=== PATIENT | female | born 1935 | race Caucasian/White ===

== ENCOUNTER 2018-09-10 12:06 | Emergency (ER) | payer MEDICARE, OTHER ==
[~2018-09-10] VITALS: Ht 149.9 cm; Wt 88.0 kg
[~2018-09-10 12:06] MED LIST: ASPIR 8181 MG PO; ATENOLOL100 MG PO; ATENOLOL50 MG PO; B-12500 MCG PO; CALCIUM600 MG PO; CENTRUM SILVER1 EAC4 PO; CO Q-10 100 MG1 EACH PO; DIOVAN HCT 80-1 EACH PO; DIOVAN80 MG PO; HUMALOG100 UNIT/1 SQ; HUMALOG100 UNITS/; ISOSORBIDE MONO20 MG PO; LANOXIN125 MCG PO; LASIX20 MG PO; LEVEMIR100 UNIT/1 SQ; MECLIZINE HCL12.5 MG PO; METFORMIN HCL1000 MG PO; MULTAQ400 MG PO; NITRO-DUR1 EACH TD; NITROGLYCERIN0.4 MG SL; SIMVASTATIN10 MG PO; SULFAMETHOXAZO1 EAC1 PO; XANAX0.25 MG PO; ZANTAC150 MG PO
[2018-09-10 14:14] LABS: BASOPHILS % 0.3 % (0.0-1.0); EOSINOPHILS # (AUTO) 0.1 (0.0-0.4); EOSINOPHILS % 0.6 % (0.0-6.0); HEMATOCRIT 39.5 % (34.2-44.1); HEMOGLOBIN 12.8 g/dL (12.0-16.0); LYMPHOCYTES # (AUTO) 2.6 (1.0-3.2); MEAN CORPUSCULAR HEMOGLOBIN 32.2 pg (28-32); MEAN CORPUSCULAR HGB CONC 32.4 g/dL (31-35); MEAN CORPUSCULAR VOLUME 99.5 fL (81-99); MONOCYTES % 9.9 % (4.4-11.3); NEUTROPHILS # (AUTO) 6.6 (2.1-6.9); NEUTROPHILS % 63.6 % (38.7-80.0); PLATELET COUNT 248 x10e3/uL (140-360); RED BLOOD COUNT 3.97 x10e6/uL (3.6-5.1); RED CELL DISTRIBUTION WIDTH 15.8 % (11.7-14.4)
[2018-09-10 14:28] LABS: ALBUMIN 3.5 g/dL (3.5-5.0); ALBUMIN/GLOBULIN RATIO 0.8 (0.8-2.0); ANION GAP 16.9 mmol/L (8-16); CALCIUM 9.1 mg/dL (8.4-10.2); CREATININE, SERUM 1.49 mg/dL (0.57-1.11); POTASSIUM 4.9 mmol/L (3.5-5.1)
[2018-09-10 14:58] LABS: BACTERIA,URINE FEW /HPF; BILIRUBIN,URINE NEGATIVE (NEGATIVE); CLARITY,URINE CLEAR (CLEAR); COLOR,URINE YELLOW (YELLOW); EPITHELIAL CELLS,URINE MANY /LPF; KETONES,URINE NEGATIVE (NEGATIVE); LEUKOCYTE ESTERASE ,URINE NEGATIVE (NEGATIVE); NITRITE,URINE NEGATIVE (NEGATIVE); PROTEIN,URINE DIPSTICK NEGATIVE (NEGATIVE); RBC,URINE 0-5 /HPF (0-5); URINE UROBILINOGEN 0.2 mg/dL (0.2 - 1); WBC,URINE (MAN) 0-5 /HPF (0-5)
--- NOTE | 2018-09-10 16:19 | Diagnostic Imaging Report ---
EXAMINATION: CHEST 2 VIEWS INDICATION: ^SEPSIS COMPARISON: None FINDINGS: PA and lateral views TUBES and LINES: Left-sided loop recorder is in place. LUNGS: Lungs are well inflated. There are bibasilar atelectasis. There is no evidence of pneumonia or pulmonary edema. Diffuse calcification of the trachea and bronchus. PLEURA: No pleural effusion or pneumothorax. HEART AND MEDIASTINUM: Cardiac size is moderately enlarged. The aorta is ectatic with atherosclerotic calcifications. BONES AND SOFT TISSUES: No acute osseous lesion. Soft tissues are unremarkable. UPPER ABDOMEN: No free air under the diaphragm. IMPRESSION: Moderate cardiomegaly with bibasilar atelectasis. Signed by: Dr. Navarro Suarez M.D. on 09/10/2018 4:15 PM
--- NOTE | 2018-09-10 16:46 | NUR ---
DR. TEIXEIRA EVALUATING PATIENT. GLUCOSE 57, PATIENT GIVEN O.J X 2
--- NOTE | 2018-09-10 17:11 | NUR ---
Pt glucose checked at this time, Reading 62. Pt stated only drank one of the 2 OJ's given. Pt stated will drink the other and eat once she gets home. Pt is currently AAOx3. NAD noted at the present time. MIKEL Mabry and Dr. Villegas notified.
== END 2018-09-10 17:27 | disposition home or self-care (01) ==
LOC: ER 12:09
DX: R20.2 Paresthesia of skin (principal); R26.2 Difficulty in walking, not elsewhere classified; I10 Essential (primary) hypertension; E11.9 Type 2 diabetes mellitus without complications; I25.10 Atherosclerotic heart disease of native coronary artery without angina pectoris; Z85.828 Personal history of other malignant neoplasm of skin
CPT/HCPCS: 36415; 71046; 80053; 81001; 82948; 85025; 87086; 87400; 93005; 99283

== ENCOUNTER → 2019-11-10 | Outpatient (CLI) | payer MEDICARE | LOC: CARD 13:21 | PROVIDERS: ATTEND Family Medicine Adult Medicine | DX: I87.312 Chronic venous hypertension (idiopathic) with ulcer of left lower extremity (principal); L97.821 Non-pressure chronic ulcer of other part of left lower leg limited to breakdown of skin | CPT/HCPCS: 93922; 93925; 93970 ==

== ENCOUNTER 2019-11-11 10:37 | Outpatient (RCR) | payer MEDICARE ==
[~2019-11-11 10:37] MED LIST changes: +FLUOCINONIDE 0.05% 1 EA/15 GM TUBE ONE; +LIDOCAINE VISC 2% SOLN 15 ML UDC ONE; +LIDOCAINE/PRILOCAINE 2.5-2.5% KIT ONE; +MINERAL OIL/PETROLAT/GLYCERI 2OZ CRM ONE; +MINERAL OIL/PETROLAT/GLYCERI 6OZ BTL ONE
[2019-11-11] MEDS ORDERED: LIDOCAINE/PRILOCAINE 2.5-2.5% KIT ONE (14:47)
== END 2019-11-13 ==
LOC: WCC 10:37
PROVIDERS: ATTEND Family Medicine Adult Medicine
DX: E11.65 Type 2 diabetes mellitus with hyperglycemia (principal); I87.312 Chronic venous hypertension (idiopathic) with ulcer of left lower extremity; I87.311 Chronic venous hypertension (idiopathic) with ulcer of right lower extremity; L97.821 Non-pressure chronic ulcer of other part of left lower leg limited to breakdown of skin; L97.811 Non-pressure chronic ulcer of other part of right lower leg limited to breakdown of skin; R60.0 Localized edema; I87.2 Venous insufficiency (chronic) (peripheral); I79.8 Other disorders of arteries, arterioles and capillaries in diseases classified elsewhere; I10 Essential (primary) hypertension; I48.21 Permanent atrial fibrillation; G47.39 Other sleep apnea; E78.49 Other hyperlipidemia; Z85.828 Personal history of other malignant neoplasm of skin
CPT/HCPCS: 36415; 82948; 87071; 87075; 87205

== ENCOUNTER 2019-12-13 15:43 | Outpatient (RCR) | payer MEDICARE ==
[~2019-12-13 15:43] MED LIST changes: -FLUOCINONIDE 0.05% 1 EA/15 GM TUBE ONE; -LIDOCAINE/PRILOCAINE 2.5-2.5% KIT ONE
[2019-12-13] MEDS ORDERED: MINERAL OIL/PETROLAT/GLYCERI 6OZ BTL ONE (18:07)
== END 2019-12-14 ==
LOC: WCC 15:43
PROVIDERS: ATTEND Family Medicine Adult Medicine
DX: E11.65 Type 2 diabetes mellitus with hyperglycemia (principal); R60.0 Localized edema; I87.312 Chronic venous hypertension (idiopathic) with ulcer of left lower extremity; I87.311 Chronic venous hypertension (idiopathic) with ulcer of right lower extremity; L97.821 Non-pressure chronic ulcer of other part of left lower leg limited to breakdown of skin; L97.811 Non-pressure chronic ulcer of other part of right lower leg limited to breakdown of skin; I87.2 Venous insufficiency (chronic) (peripheral); I79.8 Other disorders of arteries, arterioles and capillaries in diseases classified elsewhere; I10 Essential (primary) hypertension; I48.21 Permanent atrial fibrillation; E78.49 Other hyperlipidemia; G47.39 Other sleep apnea; Z85.828 Personal history of other malignant neoplasm of skin
CPT/HCPCS: 36415; 82948

== ENCOUNTER → 2020-01-13 | Outpatient (RCR) | payer MEDICARE ==
[~2020-01-13] MED LIST changes: -LIDOCAINE VISC 2% SOLN 15 ML UDC ONE
== END ==
LOC: WCC 12-16 15:28
PROVIDERS: ATTEND Family Medicine Adult Medicine
DX: E11.65 Type 2 diabetes mellitus with hyperglycemia (principal); I87.312 Chronic venous hypertension (idiopathic) with ulcer of left lower extremity; I87.311 Chronic venous hypertension (idiopathic) with ulcer of right lower extremity; L97.821 Non-pressure chronic ulcer of other part of left lower leg limited to breakdown of skin; L97.811 Non-pressure chronic ulcer of other part of right lower leg limited to breakdown of skin; R60.0 Localized edema; I87.2 Venous insufficiency (chronic) (peripheral); I79.8 Other disorders of arteries, arterioles and capillaries in diseases classified elsewhere; I10 Essential (primary) hypertension; I48.21 Permanent atrial fibrillation; E78.49 Other hyperlipidemia; G47.39 Other sleep apnea; Z85.828 Personal history of other malignant neoplasm of skin

== ENCOUNTER 2020-01-27 11:04 | Outpatient (RCR) | payer MEDICARE ==
[~2020-01-27 11:04] MED LIST changes: -MINERAL OIL/PETROLAT/GLYCERI 6OZ BTL ONE
[2020-01-27] MEDS ORDERED: MINERAL OIL/PETROLAT/GLYCERI 6OZ BTL ONE (19:22)
== END 2020-02-13 ==
LOC: WCC 11:04
PROVIDERS: ATTEND Family Medicine Adult Medicine
DX: E11.65 Type 2 diabetes mellitus with hyperglycemia (principal); I87.312 Chronic venous hypertension (idiopathic) with ulcer of left lower extremity; L97.821 Non-pressure chronic ulcer of other part of left lower leg limited to breakdown of skin; I79.8 Other disorders of arteries, arterioles and capillaries in diseases classified elsewhere; R60.0 Localized edema; I87.2 Venous insufficiency (chronic) (peripheral); I10 Essential (primary) hypertension; I48.21 Permanent atrial fibrillation; E78.49 Other hyperlipidemia; G47.39 Other sleep apnea; Z85.828 Personal history of other malignant neoplasm of skin

== ENCOUNTER 2021-10-08 18:30 | Emergency (ER) | payer MEDICARE ==
[~2021-10-08] VITALS: Ht 149.9 cm; Wt 88.0 kg
[~2021-10-08 18:30] MED LIST changes: -MINERAL OIL/PETROLAT/GLYCERI 2OZ CRM ONE
[2021-10-08] MEDS ORDERED: DEXTROSE 50% SYRINGE 50 ML IV STA (19:08)
[2021-10-08 19:19] LABS: BASOPHILS % 0.2 % (0.0-1.0); EOSINOPHILS % 0.4 % (0.0-6.0); HEMATOCRIT 46.3 % (34.2-44.1); HEMOGLOBIN 14.6 g/dL (12.0-16.0); LYMPHOCYTES % 21.5 % (18.0-39.1); MEAN CORPUSCULAR HEMOGLOBIN 31.3 pg (28-32); MEAN CORPUSCULAR HGB CONC 31.5 g/dL (31-35); MEAN CORPUSCULAR VOLUME 99.4 fL (81-99); MONOCYTES # (AUTO) 0.6 (0.2-0.8); MONOCYTES % 6.3 % (4.4-11.3); NEUTROPHILS # (AUTO) 6.8 (2.1-6.9); PLATELET COUNT 198 x10e3/uL (140-360); RED BLOOD COUNT 4.66 x10e6/uL (3.6-5.1); RED CELL DISTRIBUTION WIDTH 14.8 % (11.7-14.4)
[2021-10-08 19:24] LABS: INR 1.01
[2021-10-08 19:25] LABS: PARTIAL THROMBOPLASTIN TIME 35.7 seconds (23.8-35.5)
[2021-10-08 19:33] LABS: ALBUMIN 4.1 g/dL (3.5-5.0); ALBUMIN/GLOBULIN RATIO 0.9 (0.8-2.0); ANION GAP 16.6 mmol/L (8-16); CALCIUM 10.6 mg/dL (8.4-10.2); CREATININE, SERUM 1.19 mg/dL (0.57-1.11); POTASSIUM 3.6 mmol/L (3.5-5.1)
[2021-10-08 19:40] LABS: CREATINE KINASE MB 4.7 ng/mL (0-5.0)
[2021-10-08] MEDS ORDERED: DEXTROSE 50% SYRINGE 50 ML IV ONE ×2 (22:15→22:22)
[2021-10-09] MEDS ORDERED: DIATRIZOATE MEGL/DIATRIZOA SOD 30 ML BTL PO ONE
[2021-10-09 00:29] LABS: AMPHETAMINES SCREEN,URINE NEGATIVE (NEGATIVE); BENZODIAZEPINES SCREEN,URINE NEGATIVE (NEGATIVE); CLARITY,URINE CLOUDY (CLEAR); COLOR,URINE YELLOW (YELLOW); KETONES,URINE NEGATIVE (NEGATIVE); LEUKOCYTE ESTERASE ,URINE NEGATIVE (NEGATIVE); NITRITE,URINE POSITIVE (NEGATIVE); PHENCYCLIDINE SCREEN,URINE NEGATIVE (NEGATIVE); PROTEIN,URINE DIPSTICK 2+ (NEGATIVE); URINE UROBILINOGEN 0.2 mg/dL (0.2 - 1)
[2021-10-09 00:33] LABS: BACTERIA,URINE MANY /HPF; EPITHELIAL CELLS,URINE FEW /LPF; RBC,URINE 0-5 /HPF (0-5)
[2021-10-09] MEDS ORDERED: CEPHALEXIN500 MG PO (00:53)
[2021-10-09] MEDS ORDERED: CEPHALEXIN 500 MG CAP PO ONE (01:00)
[2021-10-09 01:20] VITALS: BP 109/77
== END 2021-10-09 01:15 | disposition home or self-care (01) ==
LOC: ER 18:37
DX: E11.649 Type 2 diabetes mellitus with hypoglycemia without coma (principal); N39.0 Urinary tract infection, site not specified; I48.91 Unspecified atrial fibrillation; I10 Essential (primary) hypertension; E78.5 Hyperlipidemia, unspecified; Z85.828 Personal history of other malignant neoplasm of skin
CPT/HCPCS: 36415; 70450; 71045; 80053; 80307; 81001; 82550; 82553; 82948; 83880; 84484; 85025; 85610; 85730; 93005; 99284; J7799